=== PATIENT | female | born 1945 | race African-American/Black ===

== ENCOUNTER 2020-02-25 17:29 | Emergency (ER) | payer OTHER ==
[~2020-02-25] VITALS: Ht 167.6 cm; Wt 72.6 kg
[2020-02-25 17:31] VITALS: BP 176/85
[2020-02-25 17:58] LABS: ABSOLUTE NEUTROPHILS 3.5 thou/uL (1.4-8.2); EOSINOPHILS 1.4 % (0.0-3.0); HEMATOCRIT 38.4 % (37.0-47.0); HEMOGLOBIN 12.4 gm/dL (12.0-15.0); LYMPHOCYTES 37.7 % (24.0-44.0); MCH 28.5 pg (26.0-34.0); MCHC 32.3 g/dL (28.0-37.0); MCV 88.1 fL (80.0-100.0); MONOCYTES 9.8 % (1.0-8.0); PLATELET COUNT 289 thou/uL (150-400); POLYS 50.1 % (36.0-66.0); RBC 4.37 mil/uL (4.20-5.00); RDW 12.8 % (10.5-14.5)
[2020-02-25 18:00] LABS: CALCIUM 9.7 mg/dL (8.5-10.1); POTASSIUM 3.8 mmol/L (3.5-5.1)
[2020-02-25 18:06] LABS: ALBUMIN 3.4 g/dL (3.4-5.0); TOTAL BILIRUBIN 0.4 mg/dL (0.2-1.0); TOTAL PROTEIN 7.4 g/dL (6.4-8.2)
[2020-02-25 18:14] LABS: URINE BILIRUBIN NEGATIVE (Negative); URINE BLOOD NEGATIVE (Negative); URINE CLARITY CLEAR; URINE COLOR YELLOW; URINE GLUCOSE-RANDOM* NEGATIVE (Negative); URINE KETONES NEGATIVE (Negative); URINE LEUKOCYTES-REFLEX TRACE (Negative); URINE NITRITE-REFLEX NEGATIVE (Negative); URINE PROTEIN (DIPSTICK) NEGATIVE (Negative); URINE UROBILINOGEN 0.2 E.U./dl (0.2-1.0)
[2020-02-25] MEDS ORDERED: OMEPRAZOLE 20 M20 M1 PO (19:27)
[2020-02-26 04:33] VITALS: BP 123/64
--- NOTE | 2020-02-26 04:34 | NUR ---
Pt did not let me take VS again, unable to take VS upon d/c from ED
--- NOTE | 2020-02-26 07:31 | EKG ---
[facility] [place] [address] ELECTROCARDIOGRAM REPORT Name: ADAL ROBIN Room #: 170-5 ADM IN M.R.#: [id number] Admission: 02/26/20 Attend Phys: Adrian Owusu DO Discharge: Date of : 49 Report #: [id number] THIS REPORT FOR: cc: ANN-MARIE Velasquez family physician/PCP ANN-MARIE Velasquez family physician/PCP Aquiles Garcia MD [facility] ~ THIS REPORT FOR: //name// [facility] ED Test Date: 2020-02-25 Test Time: 17:31:07 Pat Name: ADAL ROBIN Department: Room: Gender: F Die Technician: : 1945 Requested By: Vani Dukes Order Number: [id number] : Aquiles Garcia Measurements Intervals [employer] Rate: 101 P: 36 CA: 221 QRS: 16 QRSD: 91 T: 41 QT: 322 QTc: 418 Interpretive Statements Sinus tachycardia Prolonged CA interval Abnormal R-wave progression, early transition No previous ECG available for comparison Electronically Signed On 02-26-2020 7:31:39 EXPLOSIVE EXPERT by Aquiles Garcia [email or web address] <ELECTRONICALLY SIGNED> By: Aqulies Garcia MD, FACC 02/26/20 0731 1731 173 Aquiles Garcia MD, [facility] /EPI
== END 2020-02-26 04:34 | disposition still patient (30) ==
LOC: ER 17:29 → EROBS 02-26 04:10 → ER 02-26 04:34
PROVIDERS: Physician Assistant
DX: R41.82 Altered mental status, unspecified (principal); F03.90 Unspecified dementia, unspecified severity, without behavioral disturbance, psychotic disturbance, mood disturbance, and anxiety; Z79.899 Other long term (current) drug therapy; Z91.041 Radiographic dye allergy status; Z20.828 Contact with and (suspected) exposure to other viral communicable diseases

== ENCOUNTER 2020-02-26 04:17 | Inpatient (IN) | payer OTHER ==
[~2020-02-26] VITALS: Ht 167.6 cm; Wt 86.0 kg
[~2020-02-26 04:17] MED LIST: OMEPRAZOLE 20 M20 M1 PO
[2020-02-26 04:45] VITALS: BP 116/83
--- NOTE | 2020-02-26 05:36 | NUR ---
PATIENT ADMITTED TO [facility] UNIT AT 0416. PATIENT CAME BY WITH ED NURSE, CHERYL. PATIENT IS A/0X1. SHE HAS A STEADY GAIT AND VERY RESTLESS. DOES NOT STAY SEATED AND WANDERS THE HALLS. PATIENT WALKED DOWN PERLA WHEN SHE FIRST GOT HERE AND TRIED TO EXIT THE UNIT MAIN DOOR. I NOTICED THAT HER GOWN WAS WET SO I REDIRECTED HER BY TELLING HER HER GOWN WAS WET. SHE SUDDENLY STARTED CRYING AND SAYING,"OH NO MOMMY, THE BABY'S COMING. MY WATER JUST BROKE." SHE REVERTED TO A CHILD'S VOICE AND CLINGED TO THIS NURSE'S ARM I WALKED HER BACK TO HER ROOM. WHEN I TOLD HER SHE WASN'T SHE DENIED IT. SAT PATIENT IN BED AND WENT TO GET A PAPER AND SHE GOT UP AND WALKED TO [facility] AND HAD THE [facility] STAFF MALE CORNERED BETWEEN HIS CART AND THE DOOR REFUSING TO MOVE AND STATED THAT HE COULDN'T LEAVE BECAUSE SHE NEEDED TO HAVE SOME WORDS WITH HIM. PATIENT WAS TOILETED AND REFUSED TO WEAR BRIEFS AT THIS TIME STATING SHE DOESN'T WEAR UNDERWEAR. VITALS OBTAINED AFTER 3 ATTEMPTS TO GET HER SEATED. T 97.5 P94 R18, BP116/83. PATIENT IS 194.6 LBS AND 5"6" TALL. HOSPITALIST NOTIFIED Wilver LOYA NP AND SHE REVIEWED THE CHART AGAIN. DR FERNANDEZ NOTIFIED AND HALDOL 5MG IM NOW AND LORAZEPAM 1MG IM NOW ORDERED AND GIVEN AT 0510. PATIENT LAID DOWN. PATIENT APPEARS TO RESTING WITH EYES CLOSED AND IS STILL. BED IN LOW POSITION AND BED ALARM IS ON. PATIENT'S COVID PCR TEST WAS NEGATIVE IN ED. DR FERNANDEZ WILL GO OVER MED ORDERS WITH MORNING STAFF HE SAID. LUNGS CTA BILATERALLY, ABDOMEN SOFT NONTENDER. DENIES SI/HI/AVH. PATIENT IS DELUSIONAL AND THINKS SHE IS IN "[facility]" AT A [facility]. PATIENT GIVEN ICE WATER TO DRINK WHEN SHE GOT HERE. SHE IS PLEASANTLY CONFUSED. I TYPE THIS, JUST GOT OUT OF BED AND IS WALKING BARE BOTTOMED WITH GOWN ON. REDIRECTED PATIENT TO HER ROOM. WILL GO NOW AND SETTLE PATIENT. ROUTINE ROUNDS TO ASSESS SAFETY AND STATUS OF PATIENT.
[2020-02-26 09:02] VITALS: BP 121/64
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
--- NOTE | 2020-02-26 18:52 | NUR ---
0700 ASSUMED CARE OF PATIENT, PATIENT IN BED ASLEEP AND SLEEPS TILL [address] Boo AND SW VISITS WITH PATIENT. PATIENT CONFUSED, DELUSIONAL STATING SHE IS GOING TO HAVE A BABY. PATIENT IN SHOWER AND REFUSES TO WEAR BRIEF. PATIENT EATING MEALS IN ROOM. REFUSES TO TAKE SHEDULED METFORMIN THIS EVENING. LS CLEAR, BS ACTIVE VS WNL.
[2020-02-26 19:52] VITALS: BP 110/63
[2020-02-26 20:10] VITALS: BP 110/63
--- NOTE | 2020-02-27 03:43 | NUR ---
Assumed care of patient at 1900. Pt resting in bed at start of shift with eyes closed and appeared to be sleeping. Pt cooperative and compliant with assessment and medications. Pt blood sugar was 135 at HS. Pt remained in her room majority of the evening, only coming out once for more water. Pt has been calm, and affect mostly flat, but did brighten up when this scientific technical writer sat and talked with her for a while. Pt took shower this evening. Pt continues to choose to wear hospital gown with no briefs on, therefore, has remained in her room. Pt vitals signs were WNL. Pt denies having any pain. Pt has not made any comments this shift regarding that she believes is . Pt has been redirectable and has not been wandering into others pts rooms this shift. Will continue to monitor for safety.
[2020-02-27 06:40] LABS: CALCIUM 9.4 mg/dL (8.5-10.1); CREATININE 0.8 mg/dL (0.6-1.0); POTASSIUM 4.3 mmol/L (3.5-5.1)
[2020-02-27 11:22] VITALS: BP 108/44
--- NOTE | 2020-02-27 12:59 | NUR ---
ASSUMED CARE AT 0700 THIS MORNING. PT. RESISTING GETTING BLOOD SUGAR DONE, BUT DID EVENTUALLY ALLOW THIS TO BE DONE. SHE IS REFUSING ASSESSMENT. SHE IS WALKING DOWN THE PERLA IN A HOSPITAL GOWN, NO UNDERWARE. SHE REFUSED TO ALLOW STAFF TO PUT A GOWN ON BACKWARDS TO COVER HER BOTTOM, BUT SHE REFUSED THIS. SHE WENT INTO A PEERS ROOM AND REFUSED TO COME OUT. WHEN STAFF ATTEMPTED TO ASSIST HER, SHE WENT LIMP AND UNCOOPERATIVE. ALL UNOCCUPIED ROOM DOORS CLOSED SO SHE COULD NOT ENTER ANY OF THEM. SHE WAS STANDING BY THE DOOR ATTEMPTING TO ELOPE. ELOPEMENT SIGNS PUT ON EACH DOOR. SHE REFUSED BREAKFAST AND AT ONLY < 50% LUNCH. SHE REFUSED ALL MORNING MEDICATIONS. SHE RECEIVED A PRN HALDOL IM FOR THIS. SHE WAS NOT ANY COOPERATIVE WITH STAFF AFTER IM, BUT SHE DID REST IN HER ROOM.
[2020-02-27 19:41] VITALS: BP 140/77
[2020-02-27 22:30] VITALS: BP 140/77
[2020-02-28 00:06] LABS: HIV ANTIBODY Non Reactive (Non Reactive)
--- NOTE | 2020-02-28 01:42 | NUR ---
Assumed care of pt at 1900. Pt lying in bed at start of shift resting. Pt assessment completed. Vital signs WNL. HS blood sugar = 148. Pt denied pain. Pt compliant with HS medicaitons. Pt presents with flat, guarded affect. Mood is quiet and withdrawn. Pt remained in her room throughout the evening/night. Pt appearance is neat and she is in gown. Pt denies any SI/HI to this news writer. Pt had labs drawn on 02/27/20; awaiting results of Syphilis labs. Results from BMP, HIV received and WNL. Pt had 8 oz of orange juice for HS snack. Per report from day shift, pt had been exit seeking earlier in day. Pt has not displayed any exit seeking behaviors during this shift. Pt has been calm and cooperative with cares. Will continue to monitor for any changes in behavior and/or safety.
[2020-02-28 08:06] VITALS: BP 101/60
--- NOTE | 2020-02-28 09:06 | NUR ---
PT SITTING IN DINING ROOM. PT DIDN'T WANT TO TAKE METFORMIN. PT WRAPPED IT UP IN A [place] AND HOLDING ONTO IT. TOOK METFORMIN FROM HER. PT ASKING ABOUT A BLUE PILL. DIDN'T SEE A BLUE PILL FOR HER TO TAKE. PT LUNGS CLEAR. PT DENIES ANY PAIN.
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
--- NOTE | 2020-02-28 12:00 | NUR ---
PT REFUSED TO EAT LUNCH AT THIS TIME.
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
--- NOTE | 2020-02-28 17:51 | NUR ---
PT REFUSED TO EAT DINNER. PT BLOOD SUGAR 139. PT STATED TO WOOL WASHER FEEDER SHE WAS NOT TAKING INSULIN. HELD METFORMIN DUE TO NOT EATING DINNER.
[2020-02-28 19:44] VITALS: BP 140/68
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
--- NOTE | 2020-02-29 01:35 | NUR ---
Assumed care on 02/28/20@ 19:15, drowsy but cooperating with MAIL CLERK who is taking her VS. VS noted to be WNL, HRRR, Lungs diminished but clear bilat, ABD N x 4Q. Reports has had depression for so long that she doesn't know any other feeling. Denies anxiety, saying "not really". When asked about SI and HI, states, "No body loves me". When prompted that she has a son, states that she has to "take care of myself, cause nobody else will". Compliant with medication administration, drank apple juice with her medications. Acucheck 136 @ HS. Bed in low position, will continue to monitor for safety and comfort.
[2020-02-29 09:20] VITALS: BP 122/61
--- NOTE | 2020-02-29 11:22 | NUR ---
TAYLOR spoke to pt's son Ken who said he will fax SW documents for the doctor to review; they are in regards to guardianship. SW team will continue to follow pt during her stay on this unit.
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
[2020-02-29 19:45] VITALS: BP 105/48
[2020-02-29 21:06] LABS: SYPHILIS AB Non Reactive (Non Reactive)
--- NOTE | 2020-03-01 04:39 | NUR ---
Assumed care of patient this pm shift. Patient in good spirits, calm and cooperative. Patient is alert and oriented to self. Patient denies hi/si. Patient takes medications whole with thin fluids. Patient ambulates without assistance and has a steady gait. Patient is seen exit seeking several times. Vital signs stable. Patient shows no signs of acute distress. Patient requested a shot of antianxiety medication but none was ordered on the may. We will continue to monitor per hospital policy.
[2020-03-01 07:45] VITALS: BP 134/62
[2020-03-01 20:16] VITALS: BP 88/60
--- NOTE | 2020-03-01 20:54 | NUR ---
Alert and orientated X3. C/O mouth pain t/o day wanting valium and refusing Tylenol. Did take Cepacol. Denies SI/HI. Calm and cooperative. Did refuse evening dose of Metformin stating she had taken 1,000 mg in AM. Breath sounds clear. Reg HR auscultated. Color pink with brisk capillary refill and palpable peripheral pulses. Independent with voiding. Active bowel sounds over soft, rounded abdomen. Ambulates with regular, steady gait. Spent majority of day in room.
--- NOTE | 2020-03-02 04:34 | NUR ---
ASSUMED CARE OF PT AT 1900. PT IS A/O X1 AND UP AD MARCO A. PLEASANT AND COOPERATIVE. NO EMOTIONAL OUTBURTS. DENIES PAIN OR DISCOMFORT. VSS. ROOM AIR. LYING IN BED AT THIS TIME AND APPEARS TO BE SLEEPING. WILL CONTINUE TO MONITOR.
[2020-03-02 11:22] VITALS: BP 146/59
--- NOTE | 2020-03-02 13:51 | NUR ---
PATIENT UP AD MARCO A - PLEASANT AND COOPERATIVE - ALERT TO SELF ONLY. NO AGITATION - GOOD APPETITE. AMBULATORY. MED COMPLIANT. HAD TO RESTRICT JUICE CONSUMPTION - REQUESTED OFTEN. EXPLAINED DUE TO BLOOD SUGAR LEVELS. ENCOURAGED WATER.
[2020-03-02 19:57] VITALS: BP 148/70
--- NOTE | 2020-03-03 04:07 | NUR ---
Assumed care of patient at 1900. Pt up adlib ambulating in hallway at start of shift. Pt walking towards unit exit doors at beginning of shift wanting to leave, as she believes she is suppose to be leaving to go to [facility] to have surgery on her mouth. Pt has been calm and cooperative. She is redirectable. Pt is alert and oriented x 1 to self. Pt presents with flat affect. Pt has been medication complaint. Pt denies pain. Pt denies any thoughts of SI/HI. Will continue to monitor for any changes in mood/behavior and safety.
[2020-03-03 07:47] VITALS: BP 117/64
--- NOTE | 2020-03-03 12:01 | NUR ---
TAYLOR spoke with Ken who sent her a fax with the guidelines of the info needed in the incapacitation letter from Dr. Owusu; Ken confirmed that he is seeking emergency guardianship in [place] as she has not established residency in [place]. He asked that TAYLOR email it back via encrypted email to [email or web address]. TAYLOR provided this update to Dr. Owusu. TAYLOR team will continue to follow pt during her stay on this unit.
--- NOTE | 2020-03-03 13:47 | NUR ---
ASSUMED CARE AT 0700 THIS MORNING. PT. HAS BEEN PACING ABOUT THE UNIT POINTING TO HER MOUTH AND ASKING IF SHE CAN GO HOME TODAY. SHE WAS COOPERATIVE WITH STAFF OBTAINING A BLOOD SUGAR. SHE ATE FAIR AT BREAKFAST. SHE TOOK MOST OF HER MEDICATIONS BUT REFUSED THE METFORMIN. SHE CONTINUES TO STATE SHE DOES NOT NEED THEM. SHE WAS ASKING FOR JUICE BUT THIS RN WOULD ONLY ALLOW ONE HER MORNING BLOOD SUGAR WAS 225.
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
[2020-03-03 19:46] VITALS: BP 124/67
--- NOTE | 2020-03-04 03:44 | NUR ---
Assumed care of patient at 1900. Pt resting in bed during earlier part of evening. Pt is alert and oriented to self. Pt compliant with nursing assessment and medications. Pt has been calm, cooperative and pleasant. Pt denies pain, SI/HI. Pt is ambulatory. Pt presents with a flat affect, but brightens up some during interactions with nursing staff. Pt does ask to leave and be let off the unit during evening, stating she wants to go out for fresh air. Pt is easily redirected. Pt scheduled Zyprexa was increased from 5 mg to 10 mg at HS this evening. Will continue to monitor for any changes in mood/behavior and for safety.
--- NOTE | 2020-03-04 08:57 | NUR ---
TAYLOR emailed in an encrypted email the incapacity letter for pt to her son Ken. SW team will continue to follow pt during her stay on this unit.
--- NOTE | 2020-03-04 09:03 | NUR ---
ASSUMED CARE AT 0700 THIS MORNING. PT. UP, DRESSED AND WALKING IN THE HALLS. SHE AT SOME OF HER BREAKFAST, AND TOOK MOST OF HER MEDICATIONS. SHE IS CONTINUING TO ASK FOR JUICES. SHE REFUSED ONE OF HER METFORMIN THIS MORNING. WITH MUCH ENCOURAGEMENT SHE TOOK THE REMAINDER OF THE MEDICATIONS. HER MOUTH WAS CHECKED AFTER TAKING MEDICATIONS. SHE CONTINUES TO BE CONFUSED, PARANOID (ABOUT HER MEDICATIONS). SHE CONTINUES TO WALK THE HALLS. AFTER MEDICATIONS PASS SHE LAYED DOWN IN HER BED. SHE FINDS REASONS TO NOT GO TO GROUPS.
[2020-03-04 09:20] VITALS: BP 120/79
--- NOTE | 2020-03-04 14:38 | NUR ---
RT Progress Note- Mela has not been an active participant in recreation therapy groups since her admission. When she is encouraged to attend groups she often replies with, "I'm not interested in that" or she replies in a non verbal manner by "signing" with her hands and pointing to her mouth. She has not been cooperative with 1;1 attempts and tends to walk away during social interaction. She is observed to switch moods swiftly from agitated to friendly. SAMPLE STEAMER will continue to attempt to engage patient in groups throughout her admission.
[2020-03-04 20:19] VITALS: BP 125/66
--- NOTE | 2020-03-05 03:15 | NUR ---
ASSUMED CARE ON 03/04/20 @ 19:00, A&OX4, HRRR, LUNGS CTA BILAT, ABD N X 4Q, REPORTS SMALL BM YESTERDAY, NONE TODAY. REPORTS PAIN LEVEL OF 5/10 AND IS OKAY WITH THAT LEVEL OF PAIN. TOOK MEDS WHOLE WITH THIN WATER. ACUCHECK 106 @ HS, NO S/S INSULIN REQUIRED. WILL CONTINUE TO MONITORAS PER UNIT PROTOCOL FOR SAFETY AND COMFORT.
[2020-03-05 09:17] VITALS: BP 98/62
--- NOTE | 2020-03-05 11:20 | NUR ---
PATIENT CARE ASSUMED AT 0700 THIS MORNING. PLEASANT AND ACKNOWLEDGED STAFF ON ARRIVAL ON UNIT. QUIET - APPEARS TO ISOLATE TO ROOM OFF AND ON - ATTENDED GROUP AND CONSUMED BREAKFAST. GOOD APPETITE. PATIENT MEDICATION COMPLIANT - WITH ZYPREXA AND POTASSIUM - REFUSED HER METFORMIN WHEN APPROACHED AND HELD BLOOD PRESSURE MEDICATION WITH PRESSURE OF 94/56. PATIENT CALM - NO AGITATION. REDIRECTS WELL - NEEDS EDUCATION AND REDIRECTION ABOUT CONSUMING TOO MUCH ORANGE JUICE AND HOW IT INCREASES BLOOD SUGAR LEVELS.
--- NOTE | 2020-03-05 13:12 | NUR ---
TAYLOR contacted Ken and provided an update. He said he is going to try to come down to [place] Tuesday and retrieve pt. He said that he is working with a basic sciences dean now. TAYLOR team will continue to follow pt during her stay on this unit.
--- NOTE | 2020-03-05 18:07 | NUR ---
PATIENT HAS BEEN CALM. COMPLIANT WITH MEDICATIONS BUT REFUSING METFORMIN. GOOD APPETITE - ISOLATIVE TO ROOM BETWEEN MEALS. PARTICIPATED IN GROUPS BUT DOES NOT ENGAGE WITH PEERS. AMBUALTORY - MAKES NEEDS KNOWN. DENIES S/I OR H/I AFFECT REMAINS BLUNTED AND MOOD DETACHED. NEED TO MONITOR WILL CHEEK MEDICATIONS IF SHE CHOOSES NOT TO TAKE THEM. NO PAIN DISCOMFORT WHEN ASSESSED BUT DID STATE HAD HEADACHE EARLIER IN DAY THAT RESOLVED ITSELF.
[2020-03-05 19:48] VITALS: BP 144/65
[2020-03-06 01:06] LABS: GLYCOHEMOGLOBIN (HGB A1C) 6.9 % (4.8-5.6)
--- NOTE | 2020-03-06 04:58 | NUR ---
PATIENT HAS BEEN IN BED ALL SHIFT. SHE AWOKE AND TOOK HER HS MEDS WITHOUT INCIDENT. SHE HAS BEEN CALM AND COOPERATIVE. BED IN LOW POSITION. NO NEGATIVE BEHAVIORS. PATIENT A/0X 3 WITH CONFUSION AND DELUSIONAL AT TIMES. ROUTINE ROUNDS TO ASSESS FOR STATUS AND SAFETY OF PATIENT.
[2020-03-06 09:13] VITALS: BP 116/74
--- NOTE | 2020-03-06 11:38 | NUR ---
9586 RESUMMED CARE FROM OVERNIGHT SHIFT THIS AM, PATIENT ATE BREAKFAST WHEN IT WAS TIME FOR MEDICATION PATIENT TOOK POTASSIUM. REFUSED METFORMIM AND OLANZAPINE. I GAVE PATIENT IM BACKUP FOR THE OLANZAPINE I EXPLAINED TO PATIENT IF SHE WANTS TO DISCHARGE SHE NEEDS TO BE MED COMPLIANT. PATIENTS ABDOMEN SOFT ROUND BOWEL SOUNDS PRESENT. LUNGS CLEAR PATIENT DENIES SI/HI/AH/VH AT PRESENT PATIENT QUIET STAYS IN HER ROOM. WILL CONTINUE TO MONITOR PATIENT FOR SAFETY AND BEHAVIORS.
[2020-03-06 20:49] VITALS: BP 123/55
--- NOTE | 2020-03-06 21:00 | NUR ---
PROGRESS A/O X4, SKIN C/D/I. VSS, UP AD MARCO A. CONTINENT OF BOWEL AND BLADDER. TOOK MEDICATION WITHOUT HESITATION. LUNGS CLEAR PT C/O OF INFREQUENT LOOSE COUGH AND A RUNNY NOSE. ACCUCHECK 117 AND PT REQUESTED A SNACK HAD OJ AND APPLE JUICE GIVEN A PUDDING WHICH SHE REFUSED TO EAT SO GIVEN YOGURT INSTEAD. DISCUSSED TRANSFER TO SICU D/T TESTING POSITIVE FOR COVID ON 03/04/20 STATED SHE DIDN'T THINK IT WAS A GOOD IDEA, AND SHE HAD NO ONE TO TAKE CARE OF HER AT HOME, REASSURED PT SHE DIDN'T HAVE TO GO HOME TONIGHT.
--- NOTE | 2020-03-06 21:16 | NUR ---
TRANSFER REPORT GIVEN TO JADEN NESS IN SICU. PT TRANSFERRED VIA WHEELCHAIR ALL BELONGINGS WITH.
--- NOTE | 2020-03-07 01:29 | NUR ---
PT NEW TRANSFER FROM [facility] ORIENTED TO NEW ROOM AND CALL LIGHT SYSTEM. VITALS STABLE. DENIES PAIN, CHEST PAIN, NAUSEA OR VOMITING. PT CONFUSED AND FREQUENTLY ASKING THAT SHE WANTS TO GO HOME. PT REORIENTED SEVERAL TIME UNSUCCESSFULLY. AD MARCO A IN HER ROOM. WILL CONTINUE TO MONITOR AND FOLLOW POC.
[2020-03-07 04:22] VITALS: BP 114/62
[2020-03-07 08:07] VITALS: BP 108/49
--- NOTE | 2020-03-07 08:42 | NUR ---
Assess due to length of stay. Pt had been residing on [facility] unit and now transfer to SICU unit for COVID+. On vitamin C/D, zinc, and thiamine. Eating 50-100% meals. Wt is obese, BMI 31. On carb control diet and BG adequate. Low nutrition risk
[2020-03-07 12:34] LABS: ABSOLUTE NEUTROPHILS 2.8 thou/uL (1.4-8.2); BASOPHILS 0.6 % (0.0-2.0); EOSINOPHILS 0.5 % (0.0-3.0); HEMATOCRIT 38.4 % (37.0-47.0); HEMOGLOBIN 12.5 gm/dL (12.0-15.0); LYMPHOCYTES 35.8 % (24.0-44.0); MCH 28.5 pg (26.0-34.0); MCHC 32.4 g/dL (28.0-37.0); MCV 87.9 fL (80.0-100.0); MONOCYTES 11.2 % (1.0-8.0); PLATELET COUNT 269 thou/uL (150-400); POLYS 51.9 % (36.0-66.0); RBC 4.37 mil/uL (4.20-5.00); RDW 11.9 % (10.5-14.5); WBC 5.4 thou/uL (4.0-11.0)
[2020-03-07 12:47] LABS: ALBUMIN 3.4 g/dL (3.4-5.0); CALCIUM 9.2 mg/dL (8.5-10.1); CREATININE 0.9 mg/dL (0.6-1.0); POTASSIUM 3.4 mmol/L (3.5-5.1); TOTAL BILIRUBIN 0.6 mg/dL (0.2-1.0); TOTAL PROTEIN 7.4 g/dL (6.4-8.2)
--- NOTE | 2020-03-07 15:22 | NUR ---
TAYLOR contacted Ken to discuss discharge. No answer. TAYLOR left ms. SW team will continue to follow pt during her stay on this unit.
[2020-03-07 16:30] VITALS: BP 154/90
--- NOTE | 2020-03-07 18:17 | NUR ---
A&O TO SELF, VSS, DENIES PAIN. PATIENT ELOPEMENT RISK AND TRIES TO RUN TOWARDS DOOR. PATIENT IRRITABLE AND PARANOID. PATIENT CONSTANTLY ASKS TO LEAVE. PATIENT REFUSED MEDS THIS AM. NO SIGNS OF DISTRESS. WILL CONTINUE TO MONITOR.
[2020-03-07 21:26] VITALS: BP 121/66
--- NOTE | 2020-03-08 02:55 | NUR ---
ASSESSED AT START OF SHIFT. PT RESTING IN BED. DENIES PAIN/N/V. UP AD MARCO A IN THE ROOM. NIGHT TIME MEDS PROVIDED. PT SLEPT WELL THIS SHIFT ONLY GETS UP TO USE THE BATHROOM BY SELF. ISOLATION MAINTAINED. WILL CONT WITH POC TILL EOS.
[2020-03-08 09:04] VITALS: BP 123/51
[2020-03-08 12:14] VITALS: BP 123/51
--- NOTE | 2020-03-08 14:25 | NUR ---
UPON INITIAL APPROACH THIS AM AT 0735 PT NOTED TO BE OFFERING NO VERBAL RESPONSES TO GREETING-GENERAL INQUIRES-HOLDING HANDS TO NECK AND GESTURING TO MOUTH THROAT LIKE SHE COULD NOT TALK-WALKING UP VERY CLOSE TO THIS NURSE AND ATTEMPTING TO TOUCH STAFFS FACE SHIELD AND MASK-NO RESPONSE TO REQUEST TO STEP BACK-WHEN GIVEN AM MEDICATIONS INITITALLY TOOK THREE OUT AND THEN TRIED TO HIDE THEM UNDER COVERS IN BED-DID EVENTUALLY PUT IN MOUTH BUT WHEN MOUTH CHECK COMPLETE NOTED TO HAVE 2-3 UNDER TONGUE-WHEN ASKED TO SWALLOW THEM SHOOK HEAD NO AND SPIT THEM INTO WASTEBASKET AT BEDSIDE. UNABLE TO ID WHICH PILLS WERE NOT CONSUMED WERE WET AND HAD PARTIALLY DISSOLVED. AT APPROX. 1210 NOTED ON Q 12 MINUTE ROUNDS TO HAVE TAKEN OFF WIG AND PLACED GOWN AND PILLOWS IN BED TO APPEAR ASS IF THERE-FOUND OFF UNIT STANDING IN HALLWAY NEXT TO CCU-ESCORTED BACK TO UNIT BY SECURITY-EDUCATION REPEATED TO PT RE NEED TO ISOLATE SELF SO NOT TO SPREAD VIRUS BUT APPROX 10 MINUTES LATER LEAVES HER ROOM AND ENTERS ANOTHER PT ROOM SEEKING OUT STAFF TO ASK FOR ALTERNATIVE MENU OPTION. ZYPREXA 10MG GIVEN IM IN LEFT DELTOID WITHOUT RESISTANCE FOR INCREASING RESISTANCE-IMPULSIVITY, ?PSYCHOSIS. AFEBRILE-GAIT STEADY. NO COUGH-LUNGS CLEAR. 02 SAT 98 PERCENT ON RA.
[2020-03-08 20:35] VITALS: BP 115/57
[2020-03-09 04:59] LABS: HEMATOCRIT 39.7 % (37.0-47.0); HEMOGLOBIN 12.7 gm/dL (12.0-15.0); MCH 28.4 pg (26.0-34.0); MCHC 31.9 g/dL (28.0-37.0); MCV 88.9 fL (80.0-100.0); RBC 4.47 mil/uL (4.20-5.00); RDW 12.2 % (10.5-14.5); WBC 4.3 thou/uL (4.0-11.0)
[2020-03-09 05:05] LABS: CREATININE 0.9 mg/dL (0.6-1.0); POTASSIUM 3.1 mmol/L (3.5-5.1)
[2020-03-09 08:05] VITALS: BP 145/95
--- NOTE | 2020-03-09 09:07 | NUR ---
PROGRESS PT UP AD MARCO A ATTEMPTED TO LEAVE THE UNIT AND AFTER STOPPED WENT TO HER ROOM TOOK MEDS AND SLEPT FOR THE REMAINDER OF SHIFT.
--- NOTE | 2020-03-09 09:11 | NUR ---
PROGRESS PT SLEPT THROUGHOUT NOC UP AD MARCO A TRIED TO LEAVE UNIT BUT RETURNED TO ROOM WHEN ASKED
[2020-03-09 12:40] VITALS: BP 126/69
--- NOTE | 2020-03-09 14:47 | NUR ---
6675 RESUMMED CARE OF PATIENT FROM OVERNIGHT SHIFT THIS AM, PATIENT IN ROOM QUIET. PATIENT ATE BREAKFAST IN REGARDS TO MEDICATION PICKS AND CHOOSES WHICH MED SHE WILL TAKE. PATIENTS ABDOMEN SOFT ROUND BOWEL SOUNDS PRESENT LUNGS CLEAR. PATIENT DENIES SI/HI/AH/VH AT PRESENT THE MEDICAL DR CAME TO SEE PATIENT. PATIENT IS VERY ANXIOUS ABOUT GOING HOME HER SON IS SUPPOSE TO GO TO COURT FOR CUSTODY. HUEY HAS NOT DISPLAYED ANY BEHAVIORS WILL CONTINUE TO MONITOR PATIENT FOR SAFETY AND BEHAVIORS.
[2020-03-09 16:55] VITALS: BP 134/66
[2020-03-09 20:03] VITALS: BP 102/79
--- NOTE | 2020-03-10 05:36 | NUR ---
PT AMBULATING IN ROOM INDEPENDENTLY AND IS TOLERATING WELL. DENIES PAIN. RESTING COMFORTABLY. NO NEEDS VOICED. CALL LIGHT WITHIN REACH. FREQUENT OBSERVATION.
[2020-03-10 05:37] VITALS: BP 96/43
[2020-03-10 07:40] VITALS: BP 101/63
--- NOTE | 2020-03-10 09:07 | NUR ---
PT CARE ASSUMED AT 0700. A&Ox3-4. VERY HIGH ELOPEMENT RISK. PT HAS ATTEMPTED TO LEAVE THE UNIT SUCCESFULLY IN THE PAST AND HAS ALREADY ATTEMPTED THIS AM ONCE. PT WAS REDIRECTED BACK TO HER ROOM IN WHICH SHE BECAME MUTE AND WHEN REMINDED THAT I HAS ALREADY HEARD HER SPEAK TODAY SHE STATED SHE HAD WORMS IN HER MOUTH. PT REFUSED HER BP AND METFORMIN AM MEDS STATING THAT SHE DOES NOT HAVE DIABETES OR HIGH BLOOD PRESSURE. IN HOUSE PCR ORDERED. WILL SWAB. ACHS WITH LOW SLIDING SCALE. WILL CONTINUE TO MONITOR.
[2020-03-10 17:00] VITALS: BP 133/71
--- NOTE | 2020-03-10 17:34 | NUR ---
TAYLOR received a call from pt's son, Ken stating the court granted him guardianship of patient. He also asked for a referral to be sent to [place] at [facility] [phone] [facility]; [phone] fax. SW faxed referral. SW team will continue to monitor.
[2020-03-10 19:58] VITALS: BP 102/59
--- NOTE | 2020-03-11 03:17 | NUR ---
MEDS DISCUSSED: PATIENT STATES THAT SHE HAS TAKEN EVERY PILL THAT HAS BEEN OFFERED TO HER. HOPES TO GO HOME SOON. USUALLY LYING IN BED, RARELY STANDS IN ROOM BEHIND GLASS DOOR OBSERVING WHAT SHE CAN SEE ON THE UNIT. UP TO BATHROOM INDEPENDENTLY. BLOOD SUGAR = 108 AT HS
[2020-03-11 04:36] VITALS: BP 118/57
[2020-03-11 09:45] VITALS: BP 128/64
[2020-03-11] MEDS ORDERED: DEPAKOTE 250MG250 M1 PO (10:43)
[2020-03-11] MEDS ORDERED: NIFEDIPINE ER30 M1 PO (10:43)
[2020-03-11] MEDS ORDERED: ZYPREXA 5 MG TAB5 M1 PO (10:51)
[2020-03-11] MEDS ORDERED: K-DUR 20 MEQ T20 MEQ PO (10:52)
[2020-03-11] MEDS ORDERED: ZINC SULFATE 2220 MG PO (10:53)
[2020-03-11] MEDS ORDERED: HYDROCHLOROTH12.5 M1 PO (10:54)
[2020-03-11] MEDS ORDERED: PROTONIX 20 MG20 M1 PO (10:55)
[2020-03-11] MEDS ORDERED: GLUCOPHAGE1000 MG PO (10:56)
[2020-03-11] MEDS ORDERED: VITAMIN B-1100 M2 PO (10:57)
[2020-03-11] MEDS ORDERED: ACEROLA C500 MG PO (10:58)
[2020-03-11] MEDS ORDERED: VITAMIN D325 MC1 PO (11:00)
--- NOTE | 2020-03-11 11:19 | NUR ---
TAYLOR contacted pt's son. No answer. SW left a msg. SW team will continue to follow pt during her stay on this unit.
--- NOTE | 2020-03-11 16:43 | NUR ---
TAYLOR was able to get a hold of Baljit concerning D/C of the Pt. 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 Baljit stated he could pick his mom up in the next day or two. TAYLOR informed that a date is needed as Pt is ready for d/c. Ken wanted to call the placement to see if they will accept the Pt and will call TAYLOR back today. TAYLOR team will continue to follow up.
[2020-03-11 19:47] VITALS: BP 127/50
--- NOTE | 2020-03-12 03:46 | NUR ---
ASSESSMENT DOCUMENTED.PT BEEN SLEEPING ALL NIGHT W/O DISTRESS.NO CONCERNS NOTED.
[2020-03-12 04:15] VITALS: BP 106/59
[2020-03-12 07:55] VITALS: BP 128/70
--- NOTE | 2020-03-12 14:41 | NUR ---
TAYLOR received a call from pt's daughter in law Mavis asking if pt can stay until she has recovered from covid. TAYLOR explained that since pt is asymptomatic, there is no medical reason for her to stay in the hospital. Also, as far as her insurance is concerned pt does not have a mental health need to remain. She said ok. TAYLOR spoke with pt's son Ken who said he is on his way from [place]; he stopped at [place] to get a new tire. He said he is approx an hour away. TAYLOR received a call from a family member named Mary Lou stating that he though pt's had to remain if covid positive. TAYLOR explained that is not true. He is under the belief that a hospital has to keep a pt while covid positive even if there is no medical needs to attend. TAYLOR provided clarification that pt is asymptomatic and therefore only needs to be isolated. He said ok. As of 1443 Ken has not arrived. TAYLOR team will continue to follow pt during her stay on this unit.
--- NOTE | 2020-03-12 15:26 | NUR ---
6358 ASSUMED CARE OF PATIENT, PATIENT SLEEPING AT THAT TIME. VS- BP 106/59, P 76, R 18, T 97.8, O2 SATS 95%. NO C/O PAIN, PATIENT CALM AT THAT TIME. PATIENT ASKS ABOUT NAME OF EACH OF HER MEDICATIONS AND REFUSES THE ONES SHE STATES SHE DOES NOT NEED. MULTIPLE ATTEMPTS TO LEAVE ROOM TODAY. OUT OF ROOM X1 AND ESCORTED BACK INTOROOM. PATIENT CONFUSED AND DELUSIONAL STATING STAFF IS HER FAMILY AND SHE WANTS TO LEAVE WITH THEM. AFTER REORIENTING HER PATIENT RETURNS TO ROOM. INCREASED AGGIATION NOTED AND OLANZAPINE 10MG IM GIVEN AT 1400 TO RIGHT DELTOID. PATIENT REQUESTING INJECTION AND SITS STILL FOR IM SHOT. PATIENT CALM AT TIMES WITH SOME AGGITAION WAITING FOR SON FOR DC. 1520 PATIENT DC VIA WC TO ER EXIT WHERE SON ([id number]) WAS WAITING. DC INSTRUCTIONS GIVEN TO DPOA , SON VOICED UNDERSTANDING. SON TRANSPORTING TO [place] WHERE PATIENT WAS ACCEPTED AT [facility] [phone]
== END 2020-03-12 15:20 | disposition home or self-care (01) | DRG 881 ==
LOC: SBH → SICU 03-06 22:16
PROVIDERS: Hospitalist; Internal Medicine; Nurse Practitioner Family; ADMIT Psychiatry & Neurology Psychiatry; ATTEND Psychiatry & Neurology Psychiatry
DX: F32.9 Major depressive disorder, single episode, unspecified (principal); F01.51 Vascular dementia, unspecified severity, with behavioral disturbance; U07.1 COVID-19; I10 Essential (primary) hypertension; F41.9 Anxiety disorder, unspecified; K21.9 Gastro-esophageal reflux disease without esophagitis; E11.9 Type 2 diabetes mellitus without complications; F22 Delusional disorders; F29 Unspecified psychosis not due to a substance or known physiological condition; K13.79 Other lesions of oral mucosa; Z28.21 Immunization not carried out because of patient refusal; Z91.041 Radiographic dye allergy status; Z82.49 Family history of ischemic heart disease and other diseases of the circulatory system; Z79.899 Other long term (current) drug therapy
CPT/HCPCS: 10880; 15000